=== PATIENT | male | born 1940 | race Caucasian/White ===

== ENCOUNTER 2016-12-03 11:53 | Emergency (ER) | payer OTHER, BC ==
--- NOTE | 2016-12-03 12:10 | CPEKG ---
Heart Rate: 62 RR Interval: 968 P-R Interval: 176 QRSD Interval: 80 QT Interval: 412 QTC Interval: 419 P [place]: 58 QRS [place]: 2 T Wave [place]: 21 EKG Severity - NORMAL ECG - EKG Impression: SINUS RHYTHM Electronically Signed By: Liza Zayas 03-Dec-2016 14:59:48
--- NOTE | 2016-12-03 12:22 | EDPHY ---
H & P Stated Complaint: Acute onset confusion ~ 1130a Time Seen by Provider: 12/03/16 12:02 HPI/ROS: CHIEF COMPLAINT: Acute memory loss HISTORY OF PRESENT ILLNESS: The patient is a 76 y/o male, with a history of CAD , arriving with his complaining of acute onset memory loss at 12:30, about 40 minutes prior to evaluation. His symptoms began while he was working out. His says he could not remember the specifics of the exercise class nor the events of the morning. His memory has improved already. At the time of assessment, he can remember most of his day and his thinks his symptoms have improved. He denies associated headache, confusion, weakness, paresthesias , speech difficulty, balance issues, or vision changes. No recent head or neck injury or chiropractic manipulation. He took an aspirin this morning. REVIEW OF SYSTEMS: Constitutional: No fever, no chills Eyes: No visual changes ENT: No sore throat Respiratory: No cough, no shortness of breath Cardiac: No chest pain Gastrointestinal: No nausea, no vomiting, no abdominal pain Genitourinary: No hematuria, no dysuria Musculoskeletal: No leg pain or swelling Skin: No rash Neurological: see HPI Psychiatric: No depression - Personal History Current Tetanus Diphtheria and Acellular Pertussis (TDAP): Yes - Medical/Surgical History PMH: PMH includes: 1. CAD, RCA stent at age 63 2. Hyperlipidemia 3. Glaucoma with right eye shunt - Social History Smoking Status: Never smoked Additional Social History: at bedside. Works out regularly. Nonsmoker. - Physical Exam Exam: General Appearance: Alert, pleasant and talkative, speech is clear Eyes: Pupils equal and round, no conjunctival pallor or injection ENT, Mouth: Mucous membranes moist Neck: Normal inspection Respiratory: Lungs are clear to auscultation Cardiovascular: Regular rate and rhythm Gastrointestinal: Abdomen is soft and non- tender Neurological: Alert, oriented x3, remote memory is intact, unable to recall some of the events of this morning, cranial nerves II through XII intact, motor 5/5, sensory intact to light touch, normal gait Skin: Warm and dry, no rash Extremities: Nontender, no pedal edema Psychiatric: Mood and affect normal Constitutional: Initial Vital Signs Temperature (C) 36.4 C 12/03/16 11:55 Heart Rate 68 12/03/16 11:55 Respiratory Rate 16 08/07/17 11:55 Blood Pressure 128/74 H 12/03/16 11:55 O2 Sat (%) 97 12/03/16 11:55 O2 Delivery Mode Room Air Allergies/Adverse Reactions: No Known Allergies Allergy (Unverified 12/03/16 11:58) Medical Decision Making - Diagnostics EKG Interpretation: EKG interpreted by me reveals normal sinus rhythm, rate 62, no ST or T segment changes. Imaging Results: CT scan of the brain read by the radiologist reveals no acute disease. Imaging: Discussed imaging studies w/ printing machine operator tape rules Radiologist, I viewed and interpreted images myself ED Course/Re-evaluation: This is a 76 y/o male who presents with acute onset memory loss without focal neurologic deficits. He is currently able to remember most of the day and does not appear confused apart from difficulty remembering some details from the day. His NIH stroke scale is 0 and he does not meet criteria for a stroke alert. Plan for IV, labs, head CT, and EKG. 1313: Reassessed patient and discussed work up. He states, "I feel normal. There 's about 20 minutes I can't remember." His head CT, EKG, and labs are unremarkable. His neurologic exam remains normal. His symptoms are consistent with transient global amnesia. Plan to discuss outpatient vs. inpatient follow up with neurology. 1331: Consulted with Dr. Morales, neurologist. Patient will follow up as an outpatient in his office. I discussed this recommendation with the patient. I offered admission for observation, but patient declined. He agrees to follow up with Dr. Morales this week. Strict return precautions given. Differential Diagnosis: Altered mental status including but not limited to CVA, TIA, intracranial hemorrhage, hypoglycemia, infectious process, electrolyte abnormality, head injury and intoxicants. - Data Points Laboratory Results: Laboratory Results 12/03/16 12:15 12/03/16 12:15 Departure - Departure Disposition: Home, Routine, Self-Care Clinical Impression: Transient global amnesia Condition: Good Instructions: Transient Global Amnesia (ED) Additional Instructions: Follow up with Dr. Morales, neurologist, this week without fail. Call today to make an appointment. Return to the ED for severe headache, vision changes, weakness or numbness, or other worsening of condition. Referrals: Kushal Morales MD [Medical Doctor] - As per Instructions Report Scribed for: Liza Zayas Report Scribed by: Chata Morton Date of Report: 12/03/16 Time of Report: 12:08 Physician Review and Approval Statement: 12/03/16 12:08 Portions of this note were transcribed by a medical pathology teacher. I personally performed a history, physical exam, medical decision making, and confirmed accuracy of information the transcribed note.
[2016-12-03 12:30] LABS: % IMMATURE GRANULYOCYTES 0.6 % (0.0-1.1); ABSOLUTE IMMATURE GRANULOCYTES 0.03 10^3/uL (0.00-0.10); ADD DIFF? NO; ADD MORPH? NO; ADD SCAN? NO; ATYPICAL LYMPHOCYTE FLAG 20 (0-99); FRAGMENT RBC FLAG 0 (0-99); HEMATOCRIT 45.9 % (40.0-51.0); HEMOGLOBIN 15.7 g/dL (13.7-17.5); LEFT SHIFT FLG 0 (0-99); LIPEMIA HEMOLYSIS FLAG 90 (0-99); MEAN CELL HEMOGLOBIN 30.8 pg (27.9-34.1); MEAN CELL HEMOGLOBIN CONCENTR. 34.2 g/dL (32.4-36.7); MEAN CELL VOLUME 90.2 fL (81.5-99.8); PLATELET CLUMPS FLAG 0 (0-99); PLATELET COUNT 210 10^3/uL (150-400); RED BLOOD CELL COUNT 5.09 10^6/uL (4.40-6.38); RED CELL DISTRIBUTION WIDTH 12.9 % (11.5-15.2)
[2016-12-03 12:57] LABS: ANION GAP 10 mEq/L (8-16); CALCIUM 8.9 mg/dL (8.5-10.4); CARBON DIOXIDE 26 mEq/l (22-31); CHLORIDE 105 mEq/L (97-110); CREATININE 1.2 mg/dL (0.7-1.3); GLOMERULAR FILTRATION RATE 59; GLUCOSE 97 mg/dL (70-100); POTASSIUM 4.1 mEq/L (3.5-5.2); SODIUM 141 mEq/L (134-144)
[2016-12-03 13:08] LABS: TROPONIN I < 0.012 ng/mL (0-0.034)
[2016-12-03 13:47] VITALS: BP 112/73; PULSE 58; RESP 18; TEMP 97.5; O2SAT 94
== END 2016-12-03 13:45 | disposition home or self-care (01) ==
DX: G45.4 Transient global amnesia (principal); I25.10 Atherosclerotic heart disease of native coronary artery without angina pectoris
CPT/HCPCS: 82947-QW